=== PATIENT | male | born 1940 | race Caucasian/White ===

== ENCOUNTER 2019-08-14 14:23 | Inpatient (IN) | payer MEDICARE ==
[~2019-08-14] VITALS: Ht 182.9 cm; Wt 110.0 kg
[~2019-08-14 14:23] MED LIST: CARV3.12 PO; CEFD300C37 PO; METF500T17 PO; MIRT-34 PO; MULT-658 PO; OMEP20CA14 PO; RIVA15TA PO; RIVA20TA PO
[2019-08-14] MEDS ORDERED: SODIUM CHLORIDE FLUSH 10ML SYR IVF ONE (14:30)
[2019-08-14] MEDS ORDERED: SODIUM CHLORIDE 0.9% 1,000ML IVBOLUS ONE (14:30)
[2019-08-14] MEDS ORDERED: PLEASE ENTER HEIGHT AND WEIGHT MC SCH (15:00)
[2019-08-14 15:15] LABS: ALANINE AMINOTRANSFERASE 9 U/L (12-78); ALBUMIN 2.5 g/dL (3.4-5.0); ANION GAP 3 mmol/L (5-15); CALCIUM 8.2 mg/dL (8.5-10.1); CHLORIDE 100 mmol/L (98-107)
[2019-08-14 15:19] LABS: MEAN CORPUSCULAR HEMOGLOBIN 25.9 pg (27.5-34.5); MEAN CORPUSCULAR VOLUME 86.1 fL (81-97); MEAN PLATELET VOLUME 7.9 fL (7.4-10.4); PLATELET COUNT 222 x10^3/uL (130-400); RED BLOOD COUNT 3.59 x10^6/uL (4.38-5.82); RED CELL DISTRIBUTION WIDTH 20.4 % (9.4-14.8)
[2019-08-14 15:20] LABS: ALKALINE PHOSPHATASE 115 U/L (45-117); BILIRUBIN,TOTAL 0.8 mg/dL (0.2-1.0); TOTAL PROTEIN 7.2 g/dL (6.4-8.2); TROPONIN I < 0.015 ng/mL (0.000-0.045)
[2019-08-14 15:33] LABS: BASOPHILS # (AUTO) 0.07 x10^3/uL (0-0.1); BASOPHILS % (AUTO) 1 % (0-1); EOSINOPHILS # (AUTO) 0.01 x10^3/uL (0-0.4); EOSINOPHILS % (AUTO) 0 % (1-7); LYMPHOCYTES # (AUTO) 0.65 x10^3/uL (1-3.4); LYMPHOCYTES % (AUTO) 8 % (22-44); MD MORPH REVIEW ONLY; MONOCYTES # (AUTO) 0.91 x10^3/uL (0.2-0.8); MONOCYTES % (AUTO) 11 % (2-9); NEUTROPHILS # (AUTO) 6.49 x10^3/uL (1.8-6.8); NEUTROPHILS % (AUTO) 80 % (42-75)
[2019-08-14 15:34] LABS: INTERNATIONAL NORMALIZED RATIO 1.07 (0.93-1.1); PROTHROMBIN TIME 11.3 Seconds (9.6-11.5)
[2019-08-14 15:35] LABS: ANISOCYTOSIS 1+; HYPOCHROMIA 1+; MICROCYTOSIS 1+
[2019-08-14 15:36] LABS: BASOPHILLIC STIPPLING 1+; OVALOCYTES 1+
[2019-08-14 15:38] LABS: <PLATELET ESTIMATE> ADEQUATE; <PLT MORPHOLOGY> NORMAL PLT MORPH
--- NOTE | 2019-08-14 16:00 | NUR ---
PT ARRIVED BY [facility]SE[facility] FROM A SNIFF PT FOUND AT 57% SAT ON RA REPORTED [facility] OF 13 BY RAMSEY W IRREG HEART RATE ON ARRIVAL PT LETHARGIC BUT RESPONDED TO MOST COMMANDS HAS WEAK EQUAL RO SECOND IV PLACED AND MOSCOSO PLACE PER ORDERS TP TO CT AND RETURNED WO CHANGE OF CONDITION PER FAMILY CALL TO ERP PT TO BE COMFORT CARE PTE TRANSPORTED TO ROOM 35 REPORT TO SUDHAKAR LAL
[2019-08-14 16:05] LABS: ACETONE, SERUM Small (20mg/dL) mg/dL (Negative)
--- NOTE | 2019-08-14 16:08 | NUR ---
PT REPORT FROM [facility]. PT CARE TO BE ASSUMED.
[2019-08-14] MEDS ORDERED: KETOROLAC 30 MG/1 ML IV PRN (16:30)
[2019-08-14] MEDS ORDERED: ONDANSETRON ODT 4 MG PO PRN (16:30)
[2019-08-14] MEDS ORDERED: ONDANSETRON 2MG/ML, 2ML IVPush PRN (16:30)
[2019-08-14] MEDS ORDERED: BACLOFEN 10 MG TABLET PO PRN (16:30)
[2019-08-14] MEDS ORDERED: LORazepam 2 MG/ML, 1ML IVPush PRN (16:30)
[2019-08-14] MEDS ORDERED: KETOROLAC 30 MG/1 ML IM PRN (16:30)
[2019-08-14] MEDS ORDERED: ACETAMINOPHEN 325 MG TABLET PO PRN (16:30)
[2019-08-14] MEDS ORDERED: ATROPINE OPHTH SOLN 1%, 5ML PO PRN (16:30)
[2019-08-14] MEDS ORDERED: morphine SULFATE 10 MG/ML, 1ML IVPush PRN (16:30)
[2019-08-14 16:52] VITALS: BP 113/56
[2019-08-14] MEDS ORDERED: FUROSEMIDE 40 MG/4 ML IV ONE (17:00)
--- NOTE | 2019-08-14 17:00 | NUR ---
PT AWAKE, COOPERATIVE. WATER BOTTLE AND WARM BLANKET PROVIDED. MOSCOSO DRAINING CLOUDY YELLOW URINE.
--- NOTE | 2019-08-14 17:07 | NUR ---
PT REPORT TO [facility] (COVERING FOR [facility]ENN[facility])
[2019-08-15] MEDS: MORPHINE SULFATE 4 MG/ML, 1ML IVPush PRN (13:35)
[2019-08-16] MEDS: MORPHINE SULFATE 4 MG/ML, 1ML IVPush PRN (13:17)
[2019-08-17] MEDS: MORPHINE SULFATE 4 MG/ML, 1ML IVPush PRN ×2 (11:46→23:04)
== END 2019-08-18 10:05 | disposition hospice, inpatient (51) | DRG 291 ==
LOC: ED 16:13 → SUATTDRO 16:15 → 4NW 16:27
PROVIDERS: ADMIT Hospitalist; ATTEND Hospitalist
DX: I50.23 Acute on chronic systolic (congestive) heart failure (principal); J96.01 Acute respiratory failure with hypoxia; J96.02 Acute respiratory failure with hypercapnia; D68.69 Other thrombophilia; D64.9 Anemia, unspecified; I27.20 Pulmonary hypertension, unspecified; Z88.8 Allergy status to other drugs, medicaments and biological substances; E11.9 Type 2 diabetes mellitus without complications; F32.9 Major depressive disorder, single episode, unspecified; R62.7 Adult failure to thrive; Z66 Do not resuscitate; Z86.711 Personal history of pulmonary embolism; Z87.891 Personal history of nicotine dependence; Z95.828 Presence of other vascular implants and grafts
CPT/HCPCS: 36600; 51702; 70450; 71045; 80053; 82010; 82803; 83605; 83735; 83880; 84100; 84484; 85025; 85610; 85730; 87040; 93005; 99291; G0378; J1940; J2270